=== PATIENT | female | born 1960 | race Caucasian/White ===

== ENCOUNTER 2016-08-20 05:01 | Inpatient (IN) | payer OTHER ==
[~2016-08-20] VITALS: Ht 165.1 cm; Wt 82.0 kg
[2016-08-20 05:43] LABS: BASOPHIL % 0.6 % (0-2); PLATELET COUNT 255 x10^3mcL (130-400); RED CELL DISTRIBUTION WIDTH 13.1 % (11.5-14.5)
[2016-08-20 05:48] LABS: CALCIUM 8.6 mg/dL (8.5-10.1); CREATININE SERUM 1.2 mg/dL (0.6-1.0); POTASSIUM SERUM 3.8 mmol/L (3.5-5.1)
[2016-08-20 06:00] LABS: ALBUMIN 3.5 g/dL (3.4-5.0); BILIRUBIN TOTAL 0.3 mg/dL (0.20-1.00); T4(THYROXINE) 7.4 ug/dL (4.7-13.3); TOTAL PROTEIN, SERUM 7.1 g/dL (6.4-8.2)
[2016-08-20 06:02] LABS: CK-MB 0.8 ng/mL (0-3.6)
[2016-08-20] MEDS ORDERED: LEVOTHYROXIN0.125 M2 PO (07:57)
[2016-08-20] MEDS ORDERED: ZESTRIL40 MG PO (07:57)
[2016-08-20] MEDS ORDERED: BUPROPION HCL150 M1 PO (07:57)
[2016-08-20] MEDS ORDERED: TENEX2 MG PO (07:58)
[2016-08-20 09:05] VITALS: BP 168/82
[2016-08-20 10:07] LABS: AMYLASE 55 U/L (25-115); HDL CHOLESTEROL 39 mg/dL (40-60); LIPASE 165 IU/L (73-393); MAGNESIUM 2.1 mg/dL (1.8-2.4)
[2016-08-20 10:12] LABS: CHOLESTEROL 202 mg/dL (<200); CHOLESTEROL/HDL RATIO 5.2; TRIGLYCERIDES 527 mg/dL (<150)
[2016-08-20 14:11] VITALS: BP 168/82
[2016-08-20 21:50] VITALS: BP 180/93
[2016-08-20 23:17] LABS: UA SPECIFIC GRAVITY <=1.005 (1.005-1.035); microscopic required? YES; urine erythrocyte TRACE (NEGATIVE)
[2016-08-20 23:31] LABS: AMPHETAMINE QUAL UR NONE DETECTED (NEG <=1000)
[2016-08-21] VITALS (8 sets, daily range): BP systolic 151–201; BP diastolic 81–104; Ht 165.1 cm; Wt 82.0 kg
[2016-08-21 07:12] LABS: BASOPHIL % 0.4 % (0-2); PLATELET COUNT 218 x10^3mcL (130-400); RED CELL DISTRIBUTION WIDTH 13.4 % (11.5-14.5)
[2016-08-21 07:27] LABS: CALCIUM 8.7 mg/dL (8.5-10.1); CARBON DIOXIDE 29.8 mmol/L (21-32); CHLORIDE SERUM 106 mmol/L (98-107); GFR1 > 60 mL/min; GLUCOSE SERUM 95 mg/dL (74-106); MAGNESIUM 1.9 mg/dL (1.8-2.4); PHOSPHOROUS 3.4 mg/dL (2.5-4.9); POTASSIUM SERUM 3.7 mmol/L (3.5-5.1); SODIUM SERUM 143 mmol/L (136-145)
[2016-08-22 05:24] VITALS: BP 153/78
[2016-08-22 07:18] LABS: BASOPHIL % 0.3 % (0-2); PLATELET COUNT 227 x10^3mcL (130-400); RED CELL DISTRIBUTION WIDTH 13.2 % (11.5-14.5)
[2016-08-22 07:40] LABS: T3 TOTAL 0.86 ng/mL
[2016-08-22 08:13] LABS: ALBUMIN 3.8 g/dL (3.4-5.0); CALCIUM 8.8 mg/dL (8.5-10.1); CARBON DIOXIDE 25.1 mmol/L (21-32); CHLORIDE SERUM 102 mmol/L (98-107); CREATININE SERUM 0.9 mg/dL (0.6-1.0); GFR1 > 60 mL/min; GLUCOSE SERUM 121 mg/dL (74-106); MAGNESIUM 1.9 mg/dL (1.8-2.4); PHOSPHOROUS 3.7 mg/dL (2.5-4.9); POTASSIUM SERUM 3.4 mmol/L (3.5-5.1); SODIUM SERUM 138 mmol/L (136-145)
[2016-08-22 09:26] VITALS: BP 162/85
[2016-08-22 12:52] VITALS: BP 179/114
[2016-08-22] MEDS ORDERED: PRA40 PO (15:16)
[2016-08-22] MEDS ORDERED: CARDIZEM CD240 MG PO (15:17)
[2016-08-22] MEDS ORDERED: COUMADIN5 MG PO (15:18)
[2016-08-22 15:50] VITALS: BP 165/111
[2016-08-22 17:01] LABS: RED CELL DISTRIBUTION WIDTH 12.2 % (11.5-14.5)
[2016-08-22 17:09] LABS: PLATELET COUNT 241 x10^3mcL (130-400)
[2016-08-22 17:13] VITALS: BP 166/112
[2016-08-22 17:16] LABS: BASOPHIL % 3.6 % (0-2)
[2016-08-22 21:56] VITALS: BP 182/114
[2016-08-23 01:30] VITALS: BP 158/89
[2016-08-23 05:11] VITALS: BP 148/76
[2016-08-23 06:57] LABS: BASOPHIL % 0.2 % (0-2); PLATELET COUNT 224 x10^3mcL (130-400); RED CELL DISTRIBUTION WIDTH 13.2 % (11.5-14.5)
[2016-08-23 06:59] LABS: CALCIUM 8.8 mg/dL (8.5-10.1); CHLORIDE SERUM 104 mmol/L (98-107); GFR1 > 60 mL/min; GLUCOSE SERUM 109 mg/dL (74-106); MAGNESIUM 2.2 mg/dL (1.8-2.4); PHOSPHOROUS 3.8 mg/dL (2.5-4.9); POTASSIUM SERUM 4.1 mmol/L (3.5-5.1); SODIUM SERUM 140 mmol/L (136-145)
[2016-08-23 08:59] VITALS: BP 143/75
[2016-08-23 11:27] VITALS: BP 143/75
== END 2016-08-23 12:30 | disposition home or self-care (01) | DRG 309 ==
LOC: ED 05:01 → DU 08:00
PROVIDERS: Emergency Medicine; Family Medicine; ADMIT Family Medicine
DX: I48.91 Unspecified atrial fibrillation (principal); I16.1 Hypertensive emergency; I45.6 Pre-excitation syndrome; I10 Essential (primary) hypertension; I48.0 Paroxysmal atrial fibrillation; E78.2 Mixed hyperlipidemia; D75.1 Secondary polycythemia; R73.03 Prediabetes; I73.9 Peripheral vascular disease, unspecified; Z87.891 Personal history of nicotine dependence
CPT/HCPCS: 80307; 83880; J2060; J2270; J2405; J3475; J3490; J7030; Q0092

== ENCOUNTER 2017-01-06 20:51 | Emergency (ER) | payer OTHER ==
[~2017-01-06 20:51] MED LIST: BUPROPION HCL150 M1 PO; CARDIZEM CD240 MG PO; COUMADIN5 MG PO; LEVOTHYROXIN0.125 M2 PO; PRA40 PO; TENEX2 MG PO; ZESTRIL40 MG PO
[2017-01-06 22:06] LABS: BASOPHIL % 0.8 % (0-2); PLATELET COUNT 294 x10^3mcL (130-400); RED CELL DISTRIBUTION WIDTH 13.1 % (11.5-14.5)
[2017-01-06 22:32] LABS: CALCIUM 9.3 mg/dL (8.5-10.1); CARBON DIOXIDE 30.1 mmol/L (21-32); CREATININE SERUM 1.6 mg/dL (0.6-1.0); POTASSIUM SERUM 3.3 mmol/L (3.5-5.1)
[2017-01-06 22:38] LABS: ALBUMIN 3.5 g/dL (3.4-5.0); BILIRUBIN TOTAL 0.3 mg/dL (0.20-1.00); TOTAL PROTEIN, SERUM 7.1 g/dL (6.4-8.2)
[2017-01-06 22:45] LABS: CK-MB 1.1 ng/mL (0-3.6)
[2017-01-06 23:52] VITALS: BP 136/88
== END 2017-01-06 23:52 | disposition home or self-care (01) ==
LOC: ED 20:51
PROVIDERS: Emergency Medicine
DX: R00.2 Palpitations (principal); R07.9 Chest pain, unspecified; I10 Essential (primary) hypertension
CPT/HCPCS: 36415; 83880; Q0092

== ENCOUNTER 2017-02-09 11:29 | Emergency (ER) | payer OTHER ==
[~2017-02-09] VITALS: Ht 165.1 cm; Wt 74.4 kg
[2017-02-09 12:07] LABS: BASOPHIL % 0.5 % (0-2); PLATELET COUNT 274 x10^3mcL (130-400); RED CELL DISTRIBUTION WIDTH 12.6 % (11.5-14.5)
[2017-02-09 12:11] LABS: CALCIUM 9.3 mg/dL (8.5-10.1); CARBON DIOXIDE 29.4 mmol/L (21-32); CREATININE SERUM 1.8 mg/dL (0.6-1.0); POTASSIUM SERUM 4.1 mmol/L (3.5-5.1)
[2017-02-09 12:16] LABS: ALBUMIN 3.6 g/dL (3.4-5.0); BILIRUBIN TOTAL 0.45 mg/dL (0.20-1.00); TOTAL PROTEIN, SERUM 7.6 g/dL (6.4-8.2)
[2017-02-09] MEDS ORDERED: CARDIZEM CD240 MG PO (12:21)
[2017-02-09] MEDS ORDERED: SOTALOL HCL80 MG PO (12:21)
[2017-02-09] MEDS ORDERED: LEVOTHYROXIN0.125 M2 PO (12:23)
[2017-02-09] MEDS ORDERED: GUANFACINE HCL2 MG PO (12:24)
[2017-02-09] MEDS ORDERED: PRAVASTATIN SOD40 M1 PO (12:25)
[2017-02-09] MEDS ORDERED: WELLBUTRIN XL150 M1 PO (12:25)
[2017-02-09] MEDS ORDERED: HCTZ/LISINOPRIL1 TA1 PO (12:26)
[2017-02-09] MEDS ORDERED: XARELTO10 M1 PO (12:26)
[2017-02-09 12:33] LABS: FREE T4 1.46 ng/dL (0.76-1.46); FREE THYROXINE INDEX 4.9 ug/dL (1.4-4.5); T4(THYROXINE) 11.7 ug/dL (4.7-13.3)
[2017-02-09 13:18] VITALS: BP 109/68
[2017-02-09 13:37] LABS: T3 TOTAL 0.89 ng/mL
== END 2017-02-09 13:19 | disposition home or self-care (01) ==
LOC: ED 11:29
PROVIDERS: Emergency Medicine
DX: R00.0 Tachycardia, unspecified (principal); I49.8 Other specified cardiac arrhythmias; F17.200 Nicotine dependence, unspecified, uncomplicated; I10 Essential (primary) hypertension; I45.6 Pre-excitation syndrome; Z71.6 Tobacco abuse counseling; E07.9 Disorder of thyroid, unspecified; Z79.899 Other long term (current) drug therapy; Z86.79 Personal history of other diseases of the circulatory system
CPT/HCPCS: 83880; 84439; J2060; J3475; J7030; Q0092

== ENCOUNTER 2017-02-17 17:44 | Inpatient (IN) | payer OTHER ==
[~2017-02-17] VITALS: Ht 165.1 cm; Wt 74.8 kg
[~2017-02-17 17:44] MED LIST changes: +GUANFACINE HCL2 MG PO; +HCTZ/LISINOPRIL1 TA1 PO; +PRAVASTATIN SOD40 M1 PO; +SOTALOL HCL80 MG PO; +WELLBUTRIN XL150 M1 PO; +XARELTO10 M1 PO
[2017-02-17 18:40] LABS: CARBON DIOXIDE 29.6 mmol/L (21-32); CREATININE SERUM 1.9 mg/dL (0.6-1.0); POTASSIUM SERUM 4.2 mmol/L (3.5-5.1)
[2017-02-17 18:45] LABS: ALBUMIN 3.5 g/dL (3.4-5.0); BILIRUBIN TOTAL 0.1 mg/dL (0.20-1.00); TOTAL PROTEIN, SERUM 7.5 g/dL (6.4-8.2)
[2017-02-17 18:56] LABS: T3 TOTAL 0.78 ng/mL
[2017-02-17 19:04] LABS: BASOPHIL % 0.5 % (0-2); PLATELET COUNT 324 x10^3mcL (130-400); RED CELL DISTRIBUTION WIDTH 12.6 % (11.5-14.5)
[2017-02-17 19:07] LABS: FREE T4 1.23 ng/dL (0.76-1.46); FREE THYROXINE INDEX 3.7 ug/dL (1.4-4.5); T4(THYROXINE) 9.2 ug/dL (4.7-13.3)
[2017-02-17] MEDS ORDERED: SOTALOL HCL80 MG (19:51)
[2017-02-17 20:20] LABS: MAGNESIUM 2.3 mg/dL (1.8-2.4); PHOSPHOROUS 3.5 mg/dL (2.5-4.9)
[2017-02-17 21:00] VITALS: BP 121/75
[2017-02-17 21:09] VITALS: Ht 165.1 cm; Wt 74.8 kg
[2017-02-18 02:57] LABS: BASOPHIL % 0.4 % (0-2); PLATELET COUNT 309 x10^3mcL (130-400)
[2017-02-18 03:02] LABS: CALCIUM 8.7 mg/dL (8.5-10.1); CARBON DIOXIDE 27.8 mmol/L (21-32); CREATININE SERUM 1.8 mg/dL (0.6-1.0); POTASSIUM SERUM 3.9 mmol/L (3.5-5.1)
[2017-02-18 05:25] VITALS: BP 109/69
[2017-02-18 06:32] VITALS: BP 116/66
[2017-02-18 09:50] VITALS: BP 149/80
[2017-02-18 10:50] LABS: microscopic required? YES; urine erythrocyte TRACE (NEGATIVE)
[2017-02-18] MEDS ORDERED: SOTALOL HCL80 MG PO ×2 (10:55→10:58)
[2017-02-18 11:11] LABS: AMPHETAMINE QUAL UR NONE DETECTED (NEG <=1000)
[2017-02-18 13:15] VITALS: BP 128/73
[2017-02-18 15:19] VITALS: BP 128/73
== END 2017-02-18 16:18 | disposition home or self-care (01) | DRG 308 ==
LOC: ED 17:44 → DU 19:24
PROVIDERS: Emergency Medicine; ADMIT Family Medicine
DX: I48.0 Paroxysmal atrial fibrillation (principal); N17.0 Acute kidney failure with tubular necrosis; E03.9 Hypothyroidism, unspecified; F32.9 Major depressive disorder, single episode, unspecified; Z68.29 Body mass index [BMI] 29.0-29.9, adult; Z79.01 Long term (current) use of anticoagulants; Z85.3 Personal history of malignant neoplasm of breast; F17.200 Nicotine dependence, unspecified, uncomplicated; Z90.89 Acquired absence of other organs; F41.9 Anxiety disorder, unspecified; Z53.29 Procedure and treatment not carried out because of patient's decision for other reasons
CPT/HCPCS: 82962; 83880; 84439; J2060; J3490; J7030; Q0092